=== PATIENT | female | born 1970 | race Caucasian/White ===

== ENCOUNTER 2016-12-27 10:39 | Outpatient (CLI) | payer BC ==
[~2016-12-27] VITALS: Ht 165.1 cm; Wt 77.1 kg
[~2016-12-27 10:39] MED LIST: BENT10CA PO
[2016-12-27] MEDS ORDERED: NS 1,000 ML IV SCH (11:15)
[2016-12-27] MEDS ORDERED: PROPOFOL 200 MG/20 ML VIAL As Ordered ONE ×2 (13:56→14:13)
--- NOTE | 2016-12-27 14:16 | ROOR ---
Patient Name: Serina Nelson Procedure Date: 12/27/2016 1:54 PM Date of : 1970 Age: 46 Room: [facility] Gender: Female Note Status: Finalized Procedure: Colonoscopy Indications: Lower abdominal pain Providers: Xiang MILTON MD Referring MD: Teresa Wright NP Requesting Provider: Medicines: Monitored Anesthesia Care Complications: No immediate complications. Procedure: Pre-Anesthesia Assessment: - The heart rate, respiratory rate, oxygen saturations, blood pressure, adequacy of pulmonary ventilation, and response to care were monitored throughout the procedure. The Colonoscope was introduced through the anus and advanced to 10 cm into the ileum. The colonoscopy was performed without difficulty. The patient tolerated the procedure well. The quality of the bowel preparation was good. Findings: The perianal and digital rectal examinations were normal. The terminal ileum appeared normal. The entire examined colon appeared normal on direct and retroflexion views. Impression: - The examined portion of the ileum was normal. - The entire examined colon is normal on direct and retroflexion views. - No specimens collected. Recommendation: - Patient has a contact number available for emergencies. The signs and symptoms of potential delayed complications were discussed with the patient. Return to normal activities tomorrow. Written discharge instructions were provided to the patient. - Return to referring physician as previously scheduled. Xiang Milton MD Xiang MILTON MD 12/27/2016 2:16:30 PM This report has been signed electronically. Number of Addenda: 0 Note Initiated On: 12/27/2016 1:54 PM Estimated Blood Loss: Estimated blood loss: none.
[2016-12-27 14:35] VITALS: BP 122/61
== END 2016-12-27 14:45 | disposition home or self-care (01) ==
LOC: M OPP 10:39
PROVIDERS: ATTEND Internal Medicine Gastroenterology
DX: R10.30 Lower abdominal pain, unspecified (principal); Z80.41 Family history of malignant neoplasm of ovary; Z79.899 Other long term (current) drug therapy

== ENCOUNTER → 2017-01-12 | Outpatient (REF) | payer BC | LOC: M LAB REF 13:00 | PROVIDERS: ATTEND Physician Assistant | DX: N39.0 Urinary tract infection, site not specified (principal) ==

== ENCOUNTER → 2021-07-17 | Outpatient (CLI) | payer BC ==
[2021-07-17 18:00] LABS: FREE T4 1.03 NG/DL (0.76-1.46); THYROID STIMULATING HORMONE 2.49 uIU/ML (0.358-3.740)
== END ==
LOC: M LAB 16:45
PROVIDERS: ATTEND Internal Medicine Gastroenterology
DX: R10.30 Lower abdominal pain, unspecified (principal)

== ENCOUNTER → 2021-07-18 | Outpatient (CLI) | payer BC ==
[~2021-07-18] MED LIST changes: +GASTROGRAFIN SOLUTION 30ML (Q9963) As Ordered ONE; +ISOVUE-370 76% 100ML VIAL As Ordered ONE
== END ==
LOC: M RAD 16:12
PROVIDERS: ATTEND Internal Medicine Gastroenterology
DX: R63.4 Abnormal weight loss (principal); R10.30 Lower abdominal pain, unspecified; R19.4 Change in bowel habit
CPT/HCPCS: 74177; Q9963; Q9967

== ENCOUNTER → 2021-08-21 | Outpatient (CLI) | payer BC ==
[~2021-08-21] MED LIST changes: -GASTROGRAFIN SOLUTION 30ML (Q9963) As Ordered ONE; -ISOVUE-370 76% 100ML VIAL As Ordered ONE
== END ==
LOC: M LABSMTC 09:53
PROVIDERS: ATTEND Anesthesiology
DX: Z01.812 Encounter for preprocedural laboratory examination (principal); Z20.822 Contact with and (suspected) exposure to COVID-19

== ENCOUNTER 2021-08-25 10:42 | Day surgery (SDC) | payer BC ==
[~2021-08-25] VITALS: Ht 167.6 cm; Wt 76.0 kg
[~2021-08-25 10:42] MED LIST changes: +LIDOCAINE 2% 100MG/5ML SDV (FOR ANES.) As Ordered ONE; +NS 1,000 ML IV ONE; +propofoL 200 MG/20 ML VIAL As Ordered ONE
[2021-08-25] MEDS ORDERED: SCOPOLAMINE 1MG TRANSDERMAL PATCH TOP ONE (11:10)
[2021-08-25] MEDS ORDERED: propofoL 200 MG/20 ML VIAL As Ordered ONE (12:34)
[2021-08-25 13:08] VITALS: BP 134/69
== END 2021-08-25 13:20 | disposition home or self-care (01) ==
LOC: M OPP 10:42
PROVIDERS: ATTEND Internal Medicine Gastroenterology
DX: Q43.8 Other specified congenital malformations of intestine (principal); K58.1 Irritable bowel syndrome with constipation; R19.4 Change in bowel habit; R10.9 Unspecified abdominal pain; Z80.41 Family history of malignant neoplasm of ovary; Z80.8 Family history of malignant neoplasm of other organs or systems

== ENCOUNTER → 2023-06-13 | Outpatient (REF) | payer BC ==
[~2023-06-13] MED LIST changes: -LIDOCAINE 2% 100MG/5ML SDV (FOR ANES.) As Ordered ONE; -NS 1,000 ML IV ONE; -propofoL 200 MG/20 ML VIAL As Ordered ONE
== END ==
LOC: M LAB REF 09:28
PROVIDERS: ATTEND Physician Assistant
DX: R30.0 Dysuria (principal)

== ENCOUNTER → 2024-06-19 | Outpatient (CLI) | payer BC | LOC: M WUC 12:07 | PROVIDERS: ATTEND Family Medicine | DX: M25.512 Pain in left shoulder (principal) ==